=== PATIENT | male | born 2000 | race Two or more races ===

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

== ENCOUNTER 2023-03-25 18:49 | Emergency (ER) | payer OTHER ==
[~2023-03-25] VITALS: Ht 177.8 cm; Wt 83.9 kg
[2023-03-25] MEDS ORDERED: BENADRYL ITCH28.3 G1 TOP (22:28)
== END 2023-03-25 22:49 | disposition home or self-care (01) ==
LOC: ER 18:49
DX: L42 Pityriasis rosea (principal)